=== PATIENT | male | born 1945 | race American Indian/Alaskan Native ===

== ENCOUNTER 2017-08-21 04:33 | Emergency (ER) | payer OTHER ==
[2017-08-21 05:36] LABS: Basophils % (Auto) 0.3 % (0.0-1.8); Eosinophils # (Auto) 0.1 K/mm3 (0.0-0.4); Eosinophils % (Auto) 0.5 % (0.0-4.3); Hematocrit 44.4 % (35.5-45.6); Hemoglobin 15.1 gm/dl (11.8-15.2); Lymphocytes # (Auto) 2.2 K/mm3 (1.2-5.4); Lymphocytes % (Auto) 14.2 % (13.4-35.0); Mean Corpuscular HGB Conc 34 % (32-34); Mean Corpuscular Hemoglobin 30 pg (28-32); Mean Corpuscular Volume 87 fl (84-94); Monocytes % (Auto) 12.9 % (0.0-7.3); Platelet Count 231 K/mm3 (140-440); Red Blood Count 5.11 M/mm3 (3.65-5.03); Red Cell Distribution Width 12.8 % (13.2-15.2)
[2017-08-21 06:11] LABS: Alanine Aminotransferase 10 units/L (7-56); Albumin 3.8 g/dL (3.9-5); BUN/Creatinine Ratio 20; Blood Urea Nitrogen 14 mg/dL (9-20); Calcium 9.6 mg/dL (8.4-10.2); Hemolysis Index 5; Lipase 9 units/L (13-60)
[2017-08-21] MEDS ORDERED: SUBLIMAZE IV ONE (06:56)
[2017-08-21] MEDS ORDERED: ZOFRAN IV ONE (06:56)
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
[2017-08-21 10:28] LABS: Bacteria,Urine 1+ /HPF (Negative); Bilirubin,Urine NEG (Negative); Blood,Urine NEG (Negative); Color,Urine Yellow (Yellow); Mucus,Urine FEW /HPF; Protein,Urine <15 mg/dL mg/dL (Negative); Urobilinogen,Urine < 2.0 mg/dL (<2.0)
--- NOTE | 2017-08-21 12:24 | Ultrasound Report ---
ULTRASOUND ABDOMEN LIMITED: TECHNIQUE: Transabdominal ultrasound with color Doppler interrogation. HISTORY: Right sided abdominal pain. COMPARISON: CT abdomen pelvis with contrast performed the same day. FINDINGS: LIVER: Normal. BILIARY SYSTEM: At least one large gallstone is identified measuring up to 1.8 cm. There is no evidence for abnormal gallbladder distention, wall thickening or surrounding fluid. The CBD measures 3 mm. PANCREAS: Obscured by bowel gas. RIGHT KIDNEY: 11.2 cm. No focal abnormality or hydronephrosis. PROXIMAL AORTA: Normal. ASCITES: None. IMPRESSION: Slightly limited exam by bowel gas. Cholelithiasis is identified. No evidence for acute cholecystitis. The pancreas is obscured.
[2017-08-21 13:04] VITALS: BP 146/92
== END 2017-08-21 12:30 | disposition home or self-care (01) ==
LOC: ED 04:33
DX: K80.20 Calculus of gallbladder without cholecystitis without obstruction (principal); D72.829 Elevated white blood cell count, unspecified; I10 Essential (primary) hypertension; E11.40 Type 2 diabetes mellitus with diabetic neuropathy, unspecified
CPT/HCPCS: 36415; 74177; 76705; 80053; 81001; 83690; 85025; 96374; 96375; 99284; J2405; J3010; Q9967